=== PATIENT | female | born 1970 | race Caucasian/White ===

== ENCOUNTER 2018-03-11 15:42 | Emergency (ER) | payer MEDICAID ==
[2018-03-11 16:44] VITALS: BP 129/89; PULSE 73; RESP 18; TEMP 98.5; O2SAT 98
--- NOTE | 2018-03-11 18:28 | ED PDOC ---
HPI: Skin/Bite Injury Chief Complaint (Provider): Itching, Pain of Skin History Per: Patient History/Exam Limitations: no limitations Onset/Duration Of Symptoms: Days (x1) Current Symptoms Are (Timing): Still Present Additional Complaint(s): 47 year old female presents to the ED for evaluation of sudden onset one day ago of itching and pain sensations to the skin on the LLQ with a small area of erythema on the left lateral umbilicus. Denies taking any medications, new detergents, or lotions. Additionally denies fever, chills, abdominal pain, nausea, vomiting, diarrhea, and skin blistering. PMD: none provided <Virginia Lawrence - Last Filed: 03/12/18 23:56> <Selin Herron - Last Filed: 03/13/18 17:27> Time Seen by Provider: 03/11/18 16:44 Chief Complaint (Nursing): Abnormal Skin Integrity Supervising Attending Note - Attestation: I have personally seen and examined this patient.: No I have reviewed all pertinent clinical information, including history, physical exam and plan: Yes <Selin Herron - Last Filed: 03/13/18 17:27> Past Medical History Reviewed: Historical Data, Nursing Documentation, Vital Signs Vital Signs: Last Vital Signs Temp 98.5 F 03/11/18 16:41 Pulse 73 03/11/18 16:41 Resp 18 03/11/18 16:41 BP 129/89 03/11/18 16:41 Pulse Ox 98 03/11/18 16:41 - Medical History PMH: No Chronic Diseases Denies: Chronic Kidney Disease - Surgical History Surgical History: No Surg Hx - Family History Family History: States: Unknown Family Hx - Social History Current smoker - smoking cessation education provided: No Alcohol: Social Drugs: Denies <Virginia Lawrence - Last Filed: 03/12/18 23:56> Vital Signs: Last Vital Signs Temp 98.5 F 03/11/18 16:41 Pulse 73 03/11/18 16:41 Resp 18 03/11/18 16:41 BP 129/89 03/11/18 16:41 Pulse Ox 98 03/12/18 23:57 <Selin Herron - Last Filed: 03/13/18 17:27> - Home Medications Home Medications: Ambulatory Orders Medication Instructions Recorded Naproxen [Naprosyn] 500 mg PO Q12H #20 tab 01/04/15 Valacyclovir HCl [Valtrex] 1 gm PO Q8H 7 Days #21 tablet 03/11/18 - Allergies Allergies/Adverse Reactions: Allergies Allergy/AdvReac Type Severity Reaction Status Date / Time No Known Allergies Allergy Verified 01/04/15 12:53 Review of Systems ROS Statement: Except As Marked, All Systems Reviewed And Found Negative Constitutional: Negative for: Fever, Chills Gastrointestinal: Negative for: Nausea, Vomiting, Abdominal Pain, Diarrhea Skin: Positive for: Other (small area of erythema on left lower abdomen with itching sensation; no blistering) <Virginia Lawrence - Last Filed: 03/12/18 23:56> Physical Exam - Reviewed Nursing Documentation Reviewed: Yes Vital Signs Reviewed: Yes - Physical Exam Appears: Positive for: No Acute Distress (but actively itching) Head Exam: Positive for: ATRAUMATIC, NORMOCEPHALIC Skin: Positive for: Normal Color (except skin hypersensitive over LLQ with 5cm flat area of erythema with irregular border; No open wounds, no abscess), Warm, Dry. Negative for: Rash Eye Exam: Positive for: Normal appearance Cardiovascular/Chest: Positive for: Regular Rate, Rhythm Respiratory: Positive for: Normal Breath Sounds. Negative for: Accessory Muscle Use, Respiratory Distress Gastrointestinal/Abdominal: Positive for: Normal Exam, Soft, Other (skin hypersensitive over LLQ, otherwise nml). Negative for: Tenderness Neurologic/Psych: Positive for: Alert, Oriented (x3). Negative for: Motor/Sensory Deficits <Virginia Lawrence - Last Filed: 03/12/18 23:56> - ECG O2 Sat by Pulse Oximetry: 98 (RA) Pulse Ox Interpretation: Normal <Virginia Lawrence - Last Filed: 03/12/18 23:56> Medical Decision Making Medical Decision Making: Time: 1743 Initial Impression: shingles Initial Plan: --Benadryl 25mg PO --Pt given script for one week of Valtrex and to instructed to take benadryl's as needed for itching. Advised to follow up with PMD tomorrow or to the ED if symptoms worsen. Scribe Attestation: Documented by Oksana Hebert, acting as a scribe for Virginia Lawrence PA-C. Provider Scribe Attestation: All medical record entries made by the Scribe were at my direction and personally dictated by me. I have reviewed the chart and agree that the record accurately reflects my personal performance of the history, physical exam, medical decision making, and the department course for this patient. I have also personally directed, reviewed, and agree with the discharge instructions and disposition. <Virginia Lawrence - Last Filed: 03/12/18 23:56> Disposition - Disposition Disposition: Routine/Home Disposition Time: 18:00 <Virginia Lawrence - Last Filed: 03/12/18 23:56> <Selin Herron - Last Filed: 03/13/18 17:27> - Clinical Impression Clinical Impression: Shingles - Disposition Condition: STABLE Additional Instructions: Take valtrex 1g every 8 hours for 7 days Take ibuprofen/tylenol as needed for pain followup with primary doctor within 2 days Return to Ed if symptoms persist or worsen Prescriptions: Valacyclovir HCl [Valtrex] 1 gm PO Q8H 7 Days #21 tablet Forms: [employer] (Armenian)
== END 2018-03-11 18:04 | disposition home or self-care (01) ==
LOC: H.ER 15:42
DX: B02.9 Zoster without complications (principal)